=== PATIENT | male | born 1975 | race Caucasian/White ===

== ENCOUNTER 2019-11-14 16:50 | Emergency (ER) | payer OTHER, SELFPAY ==
[2019-11-14 16:56] VITALS: BMI 21.5
[2019-11-14 17:00] VITALS: BP 134/75; PULSE 52; RESP 18; TEMP 36.7; O2SAT 97
--- NOTE | 2019-11-14 17:28 | ED_ITS ---
Documented by User: Cameron Lombardi DO 11/15/19 06:04 HPI - Abdominal Pain General: Chief Complaint: Abdominal Pain Stated Complaint: abd pain Time Seen by Provider: 11/14/19 17:18 History of Present Illness: HPI narrative: 44-year-old male comes in with abdominal pain. He states he gets it an episode of this about every 3 to 4 weeks he gets severe nausea vomiting nominal pain and cramping. He has had this for the last several months. He states about 6 or 7 months ago had a Mariela fundoplication and it seemed to begin then he seen Dr. Huizar multiple times since then evidently this is a general surgeon from [facility]. He states he is tried several different tests and evaluations of not really found anything for it patient does state he usually resolves if he takes a hot shower. He has not had any hematuria he does get a lot of diaphoresis nausea and vomiting with this and it seems to be persistent. He does smoke marijuana daily states he has done this for years. MD elicited complaint: abdominal pain Pertinent past history: none Pain Consistency: constant Location: Diffuse Severity: mild Quality: cramping and stabbing Radiation: none Migration to: no migration Exacerbating factors: nothing Relieving factors: nothing Associated Symptoms: Reports anorexia, bloating and dyspepsia; Denies chills, fever(s), hematochezia, hematuria, hematemesis, fecal incontinence, melena, nausea and vomiting Treatments prior to arrival: other (PPI/H2 blockers) Review of Systems Const: Denies: fever(s), chills, body aches, change in appetite, fatigue or malaise ENMT: Denies: throat pain, ear or mastoid pain, nasal discharge or nasal congestion Card: Denies: chest pain, edema, dyspnea on exertion or orthopnea Resp: Denies: dyspnea, productive cough or non-productive cough GI: Reports: bloating; Denies: nausea, vomiting, hematemesis, fecal incontinence, hematochezia or melena : Denies: hematuria Skin/Breast: Denies: rash or pruritus Physical Exam Const: COMMON NORMALS: no acute distress GENERAL APPEARANCE: cooperative and comfortable ORIENTATION/CONSCIOUSNESS: Yes awake, Yes oriented to person, Yes oriented to place and Yes oriented to time HENMT: COMMON NORMALS: normocephalic, atraumatic, hearing grossly normal bilaterally, external ears normal, EAC's normal, TM's normal bilaterally, Normal nasal mucous membranes and turbinates present, moist oral mucous membranes and oropharynx normal HEAD & SCALP: normocephalic and atraumatic NOSE: Normal nasal mucous membranes and turbinates present EXTERNAL EAR: Yes external ears normal EXTERNAL AUDITORY CANAL: EAC's normal TYMPANIC MEMBRANE: TM's normal bilaterally Eye: COMMON NORMALS: Equal, round and reactive pupils present, EOMs intact bilaterally, conjunctivae normal and no scleral icterus CONJUNCTIVA: Yes conjunctivae normal PUPIL: Yes Equal, round and reactive pupils present Neck/C-Spine: COMMON NORMALS: full ROM, no lymphadenopathy, supple and no JVD Lymph: LYMPHATIC: no lymphadenopathy noted and no lymphedema noted Resp: COMMON NORMALS: normal respiratory effort, No retractions, No use of accessory muscles and clear to auscultation bilaterally AUSCULTATION: clear to auscultation bilaterally Cardio: COMMON NORMALS: no JVD, regular rate, regular rhythm and No murmurs present (Cardio) RATE: regular rate RHYTHM: regular rhythm GI: COMMON NORMALS: No hepatosplenomegaly present PALPATION: Yes Tenderness to palpation present (GI) (diffuse) and Yes No hepatosplenomegaly present Extremity: COMMON NORMALS: normal to inspection, capillary refill normal, no clubbing, cyanosis or edema, no calf tenderness and no pedal edema Neuro: SENSORIUM/ORIENTATION: Yes oriented to person, Yes oriented to place and Yes oriented to time Skin: COMMON NORMALS: no rashes or lesions noted GENERAL SKIN EXAM: no rashes or lesions noted Course Vital Signs: Vital signs: Vital Signs Temperature 98.1 F 11/14/19 17:00 Pulse Rate 67 11/14/19 20:43 Respiratory Rate 17 11/14/19 20:43 Blood Pressure 116/70 11/14/19 20:43 Pulse Oximetry 99 11/14/19 20:43 MDM - Abdominal Pain MDM Narrative: Medical decision making narrative: Initially after history and exam suggest to the patient this is most likely cyclical vomiting caused by chronic cannabinoid syndrome. Patient is more than marginally offended by this suggestion. He actually became somewhat upset. Discussed with him that is something we do see frequently we went ahead and gave him some Ativan and Haldol as well as some topical capsaicin cream. Find itching of the hot showers are actually something he finds relief from which is typical for chronic cannabinoid syndrome.. Lab Data: Labs: Lab Results 11/14/19 11/14/19 11/14/19 Range/Units 17:42 17:42 17:42 WBC 14.5 H (4.0-10.0) 10^3/ uL RBC 4.52 (4.1-5.3) 10^6/u L Hgb 14.0 (11.7-16.6) g/dL Hct 44.7 (42.0-52.0) % MCV 98.9 H (80-94) fL MCH 31.0 (28.0-34.0) pg MCHC 31.3 (30.0-36.0) g/dL RDW 13.1 (12.1-15.1) % Plt Count 245 (130-400) 10^3/c mm MPV 10.5 H (7.4-10.4) fL Neut % (Auto) 89.8 % Lymph % (Auto) 7.8 % [place] % (Auto) 1.9 % Eos % (Auto) 0.0 % Baso % (Auto) 0.1 % Neut # (Auto) 13.1 H (1.8-7.7) 10^3/u L Lymph # (Auto) 1.1 (0.8-4.8) 10^3/u L [place] # (Auto) 0.3 (0.2-0.9) 10^3/u L Eos # (Auto) 0.0 (0.0-0.8) 10^3/u L Baso # (Auto) 0.0 (0.0-0.1) 10^3/u L Nucleated RBC % (a uto) 0 % Nucleated RBCs # 0.0 /100WBC PT (10.5-13.3) SECO NDS INR (0.8-1.2) APTT (23.9-36.7) SECO NDS Sodium 141 (136-145) mmol/L Potassium 4.4 (3.5-5.1) mmol/L Chloride 106 (98-107) mmol/L Carbon Dioxide 21 L (22-29) mmol/L Anion Gap 18.4 (5-19) BUN 15 (6-20) mg/dL Creatinine 0.8 (0.7-1.2) mg/dL GFR Calculation 106.0 (90-130) mL/min Glucose 179 H (65-115) mg/dL Calculated Osmolal ity 293 (285-295) mOsm/k g Lactate 2.1 (0.5-2.2) mmol/L Calcium 9.9 (8.5-10.5) mg/dL Total Bilirubin 0.4 (0.15-1.2) mg/dL AST 15 (0-40) U/L ALT 13 (0-41) U/L Alkaline Phosphata se 83 (40-130) IU/L Total Protein 7.2 (6.6-8.7) g/dL Albumin 4.8 (3.5-5.2) g/dL Globulin 2.4 (1.3-4.6) g/dL Lipase 16 (13-60) U/L Urine Color (Yellow) Urine Appearance (CLEAR) Urine pH (5-7) Ur Specific Gravit y (1.005-1.030) Urine Protein (Negative) Urine Glucose (UA) (Normal) Urine Ketones (Negative) Urine Blood (Negative) Urine Nitrate (Negative) Urine Bilirubin (NEGATIVE) Urine Urobilinogen (Negative) mg/dL Ur Leukocyte Fozia ase (Negative) Urine RBC (0-2) /hpf Urine WBC (0-5) /hpf Ur Squamous Epith Cells (0-5) Ur Transition Epit h Cell /hpf Amorphous Sediment Urine Bacteria (NONE) 11/14/19 11/14/19 Range/Units 17:42 18:21 WBC (4.0-10.0) 10^3/ uL RBC (4.1-5.3) 10^6/u L Hgb (11.7-16.6) g/dL Hct (42.0-52.0) % MCV (80-94) fL MCH (28.0-34.0) pg MCHC (30.0-36.0) g/dL RDW (12.1-15.1) % Plt Count (130-400) 10^3/c mm MPV (7.4-10.4) fL Neut % (Auto) % Lymph % (Auto) % [place] % (Auto) % Eos % (Auto) % Baso % (Auto) % Neut # (Auto) (1.8-7.7) 10^3/u L Lymph # (Auto) (0.8-4.8) 10^3/u L [place] # (Auto) (0.2-0.9) 10^3/u L Eos # (Auto) (0.0-0.8) 10^3/u L Baso # (Auto) (0.0-0.1) 10^3/u L Nucleated RBC % (a uto) % Nucleated RBCs # /100WBC PT 13.60 H (10.5-13.3) SECO NDS INR 1.00 (0.8-1.2) APTT 28.5 (23.9-36.7) SECO NDS Sodium (136-145) mmol/L Potassium (3.5-5.1) mmol/L Chloride (98-107) mmol/L Carbon Dioxide (22-29) mmol/L Anion Gap (5-19) BUN (6-20) mg/dL Creatinine (0.7-1.2) mg/dL GFR Calculation (90-130) mL/min Glucose (65-115) mg/dL Calculated Osmolal ity (285-295) mOsm/k g Lactate (0.5-2.2) mmol/L Calcium (8.5-10.5) mg/dL Total Bilirubin (0.15-1.2) mg/dL AST (0-40) U/L ALT (0-41) U/L Alkaline Phosphata se (40-130) IU/L Total Protein (6.6-8.7) g/dL Albumin (3.5-5.2) g/dL Globulin (1.3-4.6) g/dL Lipase (13-60) U/L Urine Color Dark yellow (Yellow) Urine Appearance Clear (CLEAR) Urine pH 5 (5-7) Ur Specific Gravit y 1.020 (1.005-1.030) Urine Protein Neg (Negative) Urine Glucose (UA) Norm (Normal) Urine Ketones 2+ H (Negative) Urine Blood Neg (Negative) Urine Nitrate Negative (Negative) Urine Bilirubin Neg (NEGATIVE) Urine Urobilinogen Norm (Negative) mg/dL Ur Leukocyte Fozia ase Negative (Negative) Urine RBC 5-10 H (0-2) /hpf Urine WBC None (0-5) /hpf Ur Squamous Epith Cells 0-4 H (0-5) Ur Transition Epit h Cell 0-4 /hpf Amorphous Sediment Not Reportable Urine Bacteria Trace (NONE) Discharge Plan Discharge Patient Disposition: Home, Self-Care Clinical Impression: Abdominal pain Qualifiers: Abdominal location: generalized Qualified Code(s): R10.84 - Generalized abdominal pain Condition: Stable Prescriptions: New Zofran 4 mg tablet 4 mg PO Q6H PRN (Reason: nausea and vomiting) Qty: 20 RF: 0 No Action omeprazole 40 mg Capsule,Delayed Release(Dr/Ec) 40 mg PO BID RF: 0 Discharge Orders: Discharge Order (Routine); Ordered 11/14/19 Ordered By: Greer Rice Referrals: Isaac Waldrop FNP [Primary Care Provider] - Pranav Holguin MD [Physician] - 1-3 days Discharge Diet: Advance as tolerated and Clear Liquid Discharge Activity: Increase activity as tolerated Patient Instructions: Abdominal Pain (ED) Activity Restrictions/Additional Instructions: Please return to the ER immediately for any of the signs or symptoms listed on your discharge instruction sheets, worsening/changing of your symptoms, you are not getting better as quickly as expected, or for ANY other cause or concerns. Follow-up with Dr. Holguin or the surgeon that originally performed your surgery in [place] at [facility] for further evaluation and care. Avoid all illicit drugs or any other substances that may cause your self to be nauseated. Stand Alone Forms: Work/School Release Discharge Date/Time: 11/14/19 20:44 Sign Out Sign Out Data: Patient Sign Out occurred on 11/14/19 at 18:11. Patient's care was discussed, and care was transferred from to Greer Rice. Coding Level of Care Code ED Operating Room Registered Nurse for Chg Fwd Exam Comprehensive Documented by User: Greer iRce 11/15/19 01:05 HPI - Abdominal Pain General: Chief Complaint: Abdominal Pain Stated Complaint: abd pain Time Seen by Provider: 11/14/19 17:18 Course Vital Signs: Vital signs: Vital Signs Temperature 98.1 F 11/14/19 17:00 Pulse Rate 67 11/14/19 20:43 Respiratory Rate 17 11/14/19 20:43 Blood Pressure 116/70 11/14/19 20:43 Pulse Oximetry 99 11/14/19 20:43 MDM - Abdominal Pain MDM Narrative: Medical decision making narrative: 1899 -patient care turned over to me, Dr. Rice at change of shift from Dr. Lombardi. Please see his note for his history, physical exam and medical decision-making notes. Upon my reexamination the patient has no abdominal pain and he has not vomited. He feels much better. Patient CT scan shows cavernous hemangiomas which he states are old. I have requested an old CT from [facility] but if not received at this point. I did review the case in full with Dr. Holguin who states he is happy to see the patient in follow-up but he thought it would be preferable the patient followed up with his surgeon out of [facility]. Patient is aware of this and agrees to do so. He will return if he has any future problems but at this time he is feeling much better and he is ready to go home. On repeat exam he does not have a surgical abdomen. His heart is regular his lungs are clear his mentation is normal. I will discharge him home per his request. Lab Data: Attestation: I reviewed the patient's lab results. Labs: Lab Results 11/14/19 11/14/19 11/14/19 Range/Units 17:42 17:42 17:42 WBC 14.5 H (4.0-10.0) 10^3/ uL RBC 4.52 (4.1-5.3) 10^6/u L Hgb 14.0 (11.7-16.6) g/dL Hct 44.7 (42.0-52.0) % MCV 98.9 H (80-94) fL MCH 31.0 (28.0-34.0) pg MCHC 31.3 (30.0-36.0) g/dL RDW 13.1 (12.1-15.1) % Plt Count 245 (130-400) 10^3/c mm MPV 10.5 H (7.4-10.4) fL Neut % (Auto) 89.8 % Lymph % (Auto) 7.8 % [place] % (Auto) 1.9 % Eos % (Auto) 0.0 % Baso % (Auto) 0.1 % Neut # (Auto) 13.1 H (1.8-7.7) 10^3/u L Lymph # (Auto) 1.1 (0.8-4.8) 10^3/u L [place] # (Auto) 0.3 (0.2-0.9) 10^3/u L Eos # (Auto) 0.0 (0.0-0.8) 10^3/u L Baso # (Auto) 0.0 (0.0-0.1) 10^3/u L Nucleated RBC % (a uto) 0 % Nucleated RBCs # 0.0 /100WBC PT (10.5-13.3) SECO NDS INR (0.8-1.2) APTT (23.9-36.7) SECO NDS Sodium 141 (136-145) mmol/L Potassium 4.4 (3.5-5.1) mmol/L Chloride 106 (98-107) mmol/L Carbon Dioxide 21 L (22-29) mmol/L Anion Gap 18.4 (5-19) BUN 15 (6-20) mg/dL Creatinine 0.8 (0.7-1.2) mg/dL GFR Calculation 106.0 (90-130) mL/min Glucose 179 H (65-115) mg/dL Calculated Osmolal ity 293 (285-295) mOsm/k g Lactate 2.1 (0.5-2.2) mmol/L Calcium 9.9 (8.5-10.5) mg/dL Total Bilirubin 0.4 (0.15-1.2) mg/dL AST 15 (0-40) U/L ALT 13 (0-41) U/L Alkaline Phosphata se 83 (40-130) IU/L Total Protein 7.2 (6.6-8.7) g/dL Albumin 4.8 (3.5-5.2) g/dL Globulin 2.4 (1.3-4.6) g/dL Lipase 16 (13-60) U/L Urine Color (Yellow) Urine Appearance (CLEAR) Urine pH (5-7) Ur Specific Gravit y (1.005-1.030) Urine Protein (Negative) Urine Glucose (UA) (Normal) Urine Ketones (Negative) Urine Blood (Negative) Urine Nitrate (Negative) Urine Bilirubin (NEGATIVE) Urine Urobilinogen (Negative) mg/dL Ur Leukocyte Fozia ase (Negative) Urine RBC (0-2) /hpf Urine WBC (0-5) /hpf Ur Squamous Epith Cells (0-5) Ur Transition Epit h Cell /hpf Amorphous Sediment Urine Bacteria (NONE) 11/14/19 11/14/19 Range/Units 17:42 18:21 WBC (4.0-10.0) 10^3/ uL RBC (4.1-5.3) 10^6/u L Hgb (11.7-16.6) g/dL Hct (42.0-52.0) % MCV (80-94) fL MCH (28.0-34.0) pg MCHC (30.0-36.0) g/dL RDW (12.1-15.1) % Plt Count (130-400) 10^3/c mm MPV (7.4-10.4) fL Neut % (Auto) % Lymph % (Auto) % [place] % (Auto) % Eos % (Auto) % Baso % (Auto) % Neut # (Auto) (1.8-7.7) 10^3/u L Lymph # (Auto) (0.8-4.8) 10^3/u L [place] # (Auto) (0.2-0.9) 10^3/u L Eos # (Auto) (0.0-0.8) 10^3/u L Baso # (Auto) (0.0-0.1) 10^3/u L Nucleated RBC % (a uto) % Nucleated RBCs # /100WBC PT 13.60 H (10.5-13.3) SECO NDS INR 1.00 (0.8-1.2) APTT 28.5 (23.9-36.7) SECO NDS Sodium (136-145) mmol/L Potassium (3.5-5.1) mmol/L Chloride (98-107) mmol/L Carbon Dioxide (22-29) mmol/L Anion Gap (5-19) BUN (6-20) mg/dL Creatinine (0.7-1.2) mg/dL GFR Calculation (90-130) mL/min Glucose (65-115) mg/dL Calculated Osmolal ity (285-295) mOsm/k g Lactate (0.5-2.2) mmol/L Calcium (8.5-10.5) mg/dL Total Bilirubin (0.15-1.2) mg/dL AST (0-40) U/L ALT (0-41) U/L Alkaline Phosphata se (40-130) IU/L Total Protein (6.6-8.7) g/dL Albumin (3.5-5.2) g/dL Globulin (1.3-4.6) g/dL Lipase (13-60) U/L Urine Color Dark yellow (Yellow) Urine Appearance Clear (CLEAR) Urine pH 5 (5-7) Ur Specific Gravit y 1.020 (1.005-1.030) Urine Protein Neg (Negative) Urine Glucose (UA) Norm (Normal) Urine Ketones 2+ H (Negative) Urine Blood Neg (Negative) Urine Nitrate Negative (Negative) Urine Bilirubin Neg (NEGATIVE) Urine Urobilinogen Norm (Negative) mg/dL Ur Leukocyte Fozia ase Negative (Negative) Urine RBC 5-10 H (0-2) /hpf Urine WBC None (0-5) /hpf Ur Squamous Epith Cells 0-4 H (0-5) Ur Transition Epit h Cell 0-4 /hpf Amorphous Sediment Not Reportable Urine Bacteria Trace (NONE) Imaging Data ^: CT Abd/Pel: Radiologist's impression: [place] [address] CT Scan Report Signed Patient: Rory Laurent Unit #: [id number] : 1975 Age/Sex: 44 / M ADM Date: 11/14/19 Loc: ER Room/Bed: Attending Dr: Ordering Provider/Ordering MD: Cameron Lombardi DO Date of Service: 11/14/19 Procedure(s): CT abdomen pelvis w con* [id number] Accession Number(s): [id number] Report Number: [id number] PROCEDURE INFORMATION: Exam: CT Abdomen And Pelvis With Contrast Exam date and time: 11/14/2019 5:40 PM Age: 44 years old Clinical indication: Abdominal pain; Generalized; Prior surgery; Surgery date: 6+ months; Surgery type: Appy, hernia x 2; Additional info: Abd pain TECHNIQUE: Imaging protocol: Computed tomography of the abdomen and pelvis with intravenous contrast. Radiation optimization: All CT scans at this facility use at least one of these dose optimization techniques: automated exposure control; mA and/or kV adjustment per patient size (includes targeted exams where dose is matched to clinical indication); or iterative reconstruction. Contrast material: OMNI 300; Contrast volume: 95 ml; Contrast route: INTRAVENOUS (IV); COMPARISON: No relevant prior studies available. RADIATION DOSE METRICS: Total DLP (mGy-cm): 533.06 FINDINGS: Liver: Examination reveals a large right hepatic lobe cavernous hemangioma dimensions approximately 9.2 cm x 7.5 cm x 7.5 cm. The cavernous hemangiomas located primarily in the posterior segment region of the liver. Two additional cavernous hemangiomas are located at the dome of the right hepatic lobe the dominant measuring approximately 37 mm x 19 mm x 36 mm. The 2nd measures approximately 20 mm in diameter. Remainder of the a patent parenchyma peers unremarkable. Gallbladder and bile ducts: Status post cholecystectomy. No visible intra or extrahepatic biliary ectasia. Pancreas: Normal. No ductal dilation. Spleen: Normal. No splenomegaly. Adrenals: Normal. No mass. Kidneys and ureters: Normal. No hydronephrosis. Stomach and bowel: Mild diverticulosis coli without evidence for diverticulitis. Nonobstructive bowel pattern. No visible adynamic or reactive ileus. Appendix: Status post appendectomy. Intraperitoneal space: Unremarkable. No free air. No significant fluid collection. Vasculature: Unremarkable. No abdominal aortic aneurysm. Lymph nodes: Unremarkable. No enlarged lymph nodes. Bladder: Unremarkable as visualized. Reproductive: Mild prostate hypertrophy. Bones/joints: Limbus vertebra L3. No visible acute or active osseous pathology. Soft tissues: Unremarkable. CT/CT abdomen pelvis w con* [id number] IMPRESSION: 1. Examination reveals a large right hepatic lobe cavernous hemangioma dimensions approximately 9.2 cm x 7.5 cm x 7.5 cm. 2. Two (2) additional smaller cavernous hemangiomas right hepatic lobe dome as detailed in text above. 3. No visible evidence of acute abdominal or pelvic pathologic process. Radiation Dose CTDIVOL = (mGy): DLP = 533.06 (mGy-cm) Dictated By: Kwan Mitchell Signed By: Kwan Mitchell Signed Date/Time: 11/14/191813 DD/ 12 Discharge Plan Discharge Patient Disposition: Home, Self-Care Clinical Impression: Abdominal pain Qualifiers: Abdominal location: generalized Qualified Code(s): R10.84 - Generalized abdominal pain Condition: Stable Prescriptions: New Zofran 4 mg tablet 4 mg PO Q6H PRN (Reason: nausea and vomiting) Qty: 20 RF: 0 No Action omeprazole 40 mg Capsule,Delayed Release(Dr/Ec) 40 mg PO BID RF: 0 Discharge Orders: Discharge Order (Routine); Ordered 11/14/19 Ordered By: Greer Rice Referrals: Isaac Waldrop FNP [Primary Care Provider] - Pranav Holguin MD [Physician] - 1-3 days Discharge Diet: Advance as tolerated and Clear Liquid Discharge Activity: Increase activity as tolerated Patient Instructions: Abdominal Pain (ED) Activity Restrictions/Additional Instructions: Please return to the ER immediately for any of the signs or symptoms listed on your discharge instruction sheets, worsening/changing of your symptoms, you are not getting better as quickly as expected, or for ANY other cause or concerns. Follow-up with Dr. Holguin or the surgeon that originally performed your surgery in [place] at [facility] for further evaluation and care. Avoid all illicit drugs or any other substances that may cause your self to be nauseated. Stand Alone Forms: Work/School Release Discharge Date/Time: 11/14/19 20:44 Sign Out Sign Out Data: Patient Sign Out occurred on 11/14/19 at 18:11. Patient's care was discussed, and care was transferred from to Greer Rice. Coding Level of Care Code ED Operating Room Registered Nurse for Arlyng Fwd Exam Comprehensive
--- NOTE | 2019-11-14 17:45 | PC.NURSE ---
pc to pharmacy spoke with nicole dolan who stated that haldol best adm via im route informed dr. odalys lenz and readback to change route to im.
[2019-11-14] MEDS: iohexol 300 mg/mL 100 mL Btl IV (17:48)
--- NOTE | 2019-11-14 17:51 | PC.NURSE ---
iv started via ct.
[2019-11-14 17:53] LABS: Basophils % 0.1 %; Hematocrit 44.7 % (42.0-52.0); Lymphocytes # 1.1 10^3/uL (0.8-4.8); Lymphocytes % 7.8 %; Mean Corpuscular HGB Conc 31.3 g/dL (30.0-36.0); Mean Corpuscular Volume 98.9 fL (80-94); Mean Platelet Volume 10.5 fL (7.4-10.4); Monocytes # 0.3 10^3/uL (0.2-0.9); Monocytes % 1.9 %; Neutrophils # 13.1 10^3/uL (1.8-7.7); Neutrophils % 89.8 %; Nucleated Red Blood Cells % 0 %; Platelet Count 245 10^3/cmm (130-400); Red Blood Count 4.52 10^6/uL (4.1-5.3); Red Cell Distribution Width 13.1 % (12.1-15.1); White Blood Count 14.5 10^3/uL (4.0-10.0)
[2019-11-14] MEDS: ondansetron 2 mg/ML SDV 2 mL 4 MG IVP (17:53)
[2019-11-14] MEDS: sodium chloride 0.9% 1,000 ML 999 ML IV (17:54)
[2019-11-14] MEDS: LORazepam 2 mg/mL INJ 1 mL IVP (17:55)
[2019-11-14] MEDS: haloperidol inj 5 mg/mL INJ 1 mL IM (18:01)
[2019-11-14 18:02] VITALS: BP 127/83; PULSE 55; RESP 14; O2SAT 95
[2019-11-14] MEDS: capsaicin 0.025% cream 60 gm 1 APPLIC TOPICAL (18:22)
[2019-11-14 18:27] LABS: Partial Thromboplastin Time 28.5 SECONDS (23.9-36.7)
[2019-11-14 18:36] LABS: Alanine Aminotransferase 13 U/L (0-41); Albumin Level 4.8 g/dL (3.5-5.2); Alkaline Phosphatase 83 IU/L (40-130); Anion Gap 18.4 (5-19); Aspartate Amino Transferase 15 U/L (0-40); Blood Urea Nitrogen 15 mg/dL (6-20); Calcium 9.9 mg/dL (8.5-10.5); Carbon Dioxide 21 mmol/L (22-29); Chloride 106 mmol/L (98-107); Creatinine Clr Calc Pharmacy 120.8252; Globulin 2.4 g/dL (1.3-4.6); Glucose 179 mg/dL (65-115); Lipase 16 U/L (13-60); Osmolality Calculated 293 mOsm/kg (285-295); Potassium 4.4 mmol/L (3.5-5.1); Sodium 141 mmol/L (136-145); Total Bilirubin 0.4 mg/dL (0.15-1.2); Total Protein 7.2 g/dL (6.6-8.7)
[2019-11-14 18:37] LABS: Lactate (Lactic Acid level) 2.1 mmol/L (0.5-2.2)
[2019-11-14 19:02] VITALS: BP 140/79; PULSE 69; RESP 16; O2SAT 93
--- NOTE | 2019-11-14 19:07 | PC.NURSE ---
Report received from JARVIS Crespo and care transferred to JARVIS Tompkins
--- NOTE | 2019-11-14 19:09 | PC.NURSE ---
report given to abhishek arias rn assumed care.
[2019-11-14 19:20] LABS: Add Urine Microscopic? YES; Bilirubin Urine Neg (NEGATIVE); Blood Urine Neg (Negative); Glucose Urine UA Norm (Normal); Ketones Urine 2+ (Negative); Leukocyte Esterase Urine Negative (Negative); Nitrate Urine Negative (Negative); Protein Urine Neg (Negative); Urine Appearance Clear (CLEAR); Urine Color Dark Yellow (Yellow); Urobilinogen Urine Norm (Negative); pH Urine 5 (5-7)
[2019-11-14 19:22] VITALS: BP 109/65; PULSE 81; RESP 16; O2SAT 94
[2019-11-14 19:23] LABS: Squamous Epithelial Cell Urine 0-4 (0-5)
[2019-11-14 19:28] LABS: Add Urine Culture? No; Bacteria Urine TRACE; Transitional Epi Cells Urine 0-4 /hpf
[2019-11-14 20:43] VITALS: BP 116/70; PULSE 67; RESP 17; O2SAT 99
== END 2019-11-14 20:44 | disposition home or self-care (01) ==
PROVIDERS: Emergency Medicine; Family Medicine; Emergency Provider Emergency Medicine; PCP Nurse Practitioner Family
DX: R10.84 Generalized abdominal pain (principal)
CPT/HCPCS: 12345; 74177; 80053; 81001; 81003; 83605; 83690; 85025; 85610; 85730; 96360; 96361; 96372; 96374; 96375; 99283; J1630; J2060; J2405; J7030; Q9967

== ENCOUNTER 2022-08-08 09:44 | Emergency (ER) | payer OTHER, SELFPAY ==
[2022-08-08 09:58] VITALS: BP 148/99; PULSE 60; RESP 16; TEMP 36.7; O2SAT 97; BMI 16.5
--- NOTE | 2022-08-08 10:14 | CTR_ITS ---
PROCEDURE INFORMATION: Exam: CT Abdomen And Pelvis With Contrast Exam date and time: 08/08/2022 10:47 AM Age: 47 years old Clinical indication: Abdominal pain; Generalized; Prior surgery; Surgery type: HX of robbie fundoplication gb hernia; Additional info: Ab pain, n/v, HX of robbie fundoplication TECHNIQUE: Imaging protocol: Computed tomography of the abdomen and pelvis with contrast. Radiation optimization: All CT scans at this facility use at least one of these dose optimization techniques: automated exposure control; mA and/or kV adjustment per patient size (includes targeted exams where dose is matched to clinical indication); or iterative reconstruction. Contrast material: OMNI 350; Contrast volume: 75 ml; Contrast route: INTRAVENOUS (IV); REPORTING DATA: Count of CT and Cardiac NM exams in prior 12 months: This patient has received 0 known CTs and 0 known cardiac nuclear medicine studies in the 12 months prior to the current study. COMPARISON: CT abdomen pelvis w con* [id number] 11/14/2019 5:32 PM RADIATION DOSE METRICS: Total DLP (mGy-cm): 320.03 FINDINGS: Lungs: Respiratory motion limiting fine pulmonary detail. Liver: Large hemangioma in the posterior right lobe of the liver measuring up to 8 cm, again noted similar to prior exam. Migrated surgical clip along the inferolateral margin of the right lobe of the liver, similar to prior exam. Additional smaller hemangiomas again noted near the hepatic dome in the right lobe of the liver. Gallbladder and bile ducts: The gallbladder is surgically absent. Pancreas: The pancreas appears normal. Spleen: The spleen appears normal. Adrenal glands: The adrenals appear normal. Kidneys and ureters: The kidneys enhance symmetrically and empty into non-dilated ureters. Stomach and bowel: Postsurgical changes in the stomach noted. Appendix: The appendix appears normal. Intraperitoneal space: No ascites or significant fluid collection. Vasculature: The aorta is nonaneurysmal. The IVC appears normal. Lymph nodes: There are no enlarged lymph nodes. Urinary bladder: The urinary bladder is not well distended, therefore not well evaluated. Reproductive: Unremarkable as visualized. Bones/joints: Limbus deformity in the anterior superior endplate of L3. Soft tissues: Unremarkable. CT/CT abdomen pelvis w con* [id number] IMPRESSION: No acute abdominopelvic abnormality identified.
--- NOTE | 2022-08-08 10:15 | ED_ITS ---
Documented by User: NOEL Conway 08/08/22 11:44 HPI - Abdominal Pain General: Chief Complaint: Abdominal Pain Stated Complaint: abd pain ,N/V Time Seen by Provider: 08/08/22 09:45 Source: patient Mode of arrival: wheelchair Limitations: no limitations History of Present Illness: Patient is a 47-year-old male who presents to the ED today with a complaint of abdominal pain, nausea, vomiting/dry heaving over the past 4 days. Patient states he has a history of a Shay fundoplication approximately 4 years ago by a surgeon at [facility]. He states it failed and had to be revised 2 years ago. Patient states every 3 to 4 weeks he will have episodes similar to this. He states he can normally control it home with warm baths/showers. Patient was seen here at our facility in 2019 with identical presentation. When asked he does tell me he has been smoking marijuana daily over the past 30 years. He has been told in the past this could be secondary to hyperemesis cannabis syndrome but is adamant this is not the etiology for his symptoms stating he quit for 2 months and symptoms did not improve. 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 MD elicited complaint: abdominal pain and other (N/V) Onset (ago): day(s) Pain Consistency: constant Location: Diffuse and LUQ Severity: severe Quality: cramping and sharp Radiation: none Migration to: no migration Exacerbating factors: eating Relieving factors: other (hot showers/baths) Associated Symptoms: Reports nausea and vomiting; Denies chills, diarrhea, dysuria, fever(s), hematochezia, hematuria, hematemesis and melena Review of Systems Const: Denies: fever(s), chills, body aches, fatigue or malaise Card: Denies: chest pain Resp: Denies: dyspnea GI: Reports: abdominal pain, nausea and vomiting; Denies: hematemesis, diarrhea, hematochezia or melena : Denies: flank pain, dysuria or hematuria Musc: Denies: neck pain, back pain, extremity pain or joint pain Skin/Breast: Denies: rash Neuro: Denies: headache(s) or dizziness Physical Exam Const: COMMON NORMALS: average body habitus, patient oriented x3, no limitations, alert and well nourished GENERAL APPEARANCE: cooperative and in distress (hunched over holding his abdomen) ORIENTATION/CONSCIOUSNESS: Yes awake, Yes oriented to person, Yes oriented to place and Yes oriented to time HENMT: COMMON NORMALS: normocephalic and atraumatic HEAD & SCALP: normal to inspection, normocephalic and atraumatic Eye: COMMON NORMALS: no scleral icterus Resp: COMMON NORMALS: normal respiratory effort and clear to auscultation bilaterally AUSCULTATION: clear to auscultation bilaterally Cardio: COMMON NORMALS: regular rate and regular rhythm RATE: regular rate RHYTHM: regular rhythm GI: COMMON NORMALS: Normal to inspection, nondistended, normoactive bowel sounds present, Soft to palpation, No hepatosplenomegaly present and no masses INSPECTION: Yes normal to inspection AUSCULTATION: Yes normoactive bowel sounds PALPATION: Yes Soft to palpation, Yes Tenderness to palpation present (GI) (throughout abdomen but moreso to upper abdomen ), Yes Guarding due to palpation present (GI), No Rigid due to palpation and Yes No hepatosplenomegaly present Extremity: COMMON NORMALS: normal to inspection GENERAL: Yes normal exam except as noted Neuro: MARAL COMA SCALE: document GCS findings Maral coma scale eye opening: Spontaneous [place] coma scale verbal response: Orientated [place] coma scale motor response: Obey commands [place] coma scale total score: 15 COMMON NORMALS: patient oriented x3 SENSORIUM/ORIENTATION: Yes alert, Yes oriented to person, Yes oriented to place and Yes oriented to time Skin: COMMON NORMALS: no rashes or lesions noted GENERAL SKIN EXAM: no rashes or lesions noted Course Vital Signs: Vital signs: Vital Signs Temperature 98.0 F 08/08/22 09:58 Pulse Rate 60 08/08/22 09:58 Respiratory Rate 16 08/08/22 09:58 Blood Pressure 148/99 08/08/22 09:58 Pulse Oximetry 97 08/08/22 09:58 Oxygen Delivery Me thod 08/08/22 09:58 MDM - Abdominal Pain Medical Decision Making After careful history, I highly suspect patient's symptoms are secondary to hyperemesis cannabinoid syndrome. Patient's symptoms are vastly improved after IV fluids, Ativan, Haldol. Vital signs are stable. Lab work shows some acute kidney injury with BUN/Cr at 53/1.5. He was given 2 L of fluids and will have a CMP checked through primary care this week. CT scan is unremarkable. He does have chronic liver hemangiomas that were present on last CT scan in 2019. Sent patient home with Ativan and Zdayneis Zyprexa to help alleviate his abdominal faye n/nausea/dry heaving. Had a lengthy discussion with patient in regards to marijuana cessation but ultimately this is a personal choice that patient will need to decide. Lab Data 08/08/22 10:24 08/08/22 10:24 Labs/Radiology: Radiology Impressions Abdomen/Pelvis CT 08/08/22 10:14 IMPRESSION: No acute abdominopelvic abnormality identified. Laboratory Results WBC 12.6 10^3/uL (4.0-10.0) H 08/08/22 10:24 RBC 5.46 10^6/uL (4.1-5.3) H 08/08/22 10:24 Hgb 16.8 g/dL (11.7-16.6) H 08/08/22 10:24 Hct 47.7 % (42.0-52.0) 08/08/22 10:24 MCV 87.4 fl (80-94) 08/08/22 10:24 MCH 30.8 pg (28.0-34.0) 08/08/22 10:24 MCHC 35.2 g/dL (30.0-36.0) 08/08/22 10:24 RDW 12.7 % (12.1-15.1) 08/08/22 10:24 Plt Count 304 10^3/cmm (130-400) 08/08/22 10:24 MPV 10.1 fL (7.4-10.4) 08/08/22 10:24 Neut % (Auto) 70.7 % 08/08/22 10:24 Lymph % (Auto) 20.3 % 08/08/22 10:24 [place] % (Auto) 8.2 % 08/08/22 10:24 Eos % (Auto) 0.0 % 08/08/22 10:24 Baso % (Auto) 0.2 % 08/08/22 10:24 Neut # (Auto) 8.95 10^3/uL (1.8-7.7) H 08/08/22 10:24 Lymph # (Auto) 2.6 10^3/uL (0.8-4.8) 08/08/22 10:24 [place] # (Auto) 1.0 10^3/uL (0.2-0.9) H 08/08/22 10:24 Eos # (Auto) 0.0 10^3/uL (0.0-0.8) 08/08/22 10:24 Baso # (Auto) 0.0 10^3/uL (0.0-0.1) 08/08/22 10:24 Nucleated RBC % (auto) 0 % 08/08/22 10:24 Nucleated RBCs # 0.0 /100WBC 08/08/22 10:24 Sodium 127 mmol/L (136-145) L 08/08/22 10:24 Potassium 3.7 mmol/L (3.5-5.1) 08/08/22 10:24 Chloride 90 mmol/L (98-107) L 08/08/22 10:24 Carbon Dioxide 18 mmol/L (22-29) L 08/08/22 10:24 Anion Gap 22.7 (5-19) H 08/08/22 10:24 BUN 53 mg/dL (6-20) H 08/08/22 10:24 Creatinine 1.5 mg/dL (0.7-1.2) H 08/08/22 10:24 GFR Calculation 50.6 mL/min (90-130) L 08/08/22 10:24 Glucose 129 mg/dL (65-115) H 08/08/22 10:24 Calculated Osmolality 280 mOsm/kg (285-295) L 08/08/22 10:24 Calcium 9.6 mg/dL (8.5-10.5) 08/08/22 10:24 Total Bilirubin 1.2 mg/dL (0.15-1.2) 08/08/22 10:24 AST 14 U/L (0-40) 08/08/22 10:24 ALT 13 U/L (0-41) 08/08/22 10:24 Alkaline Phosphatase 88 U/L (40-130) 08/08/22 10:24 Total Protein 8.4 g/dL (6.6-8.7) 08/08/22 10:24 Albumin 5.0 g/dL (3.5-5.2) 08/08/22 10:24 Globulin 3.4 g/dL (1.3-4.6) 08/08/22 10:24 Lipase 28 U/L (13-60) 08/08/22 10:24 Urine Color Yellow (Yellow) 08/08/22 10:57 Urine Appearance Clear (CLEAR) 08/08/22 10:57 Urine pH 5 (5-7) 08/08/22 10:57 Ur Specific [place] 1.020 (1.005-1.030) 08/08/22 10:57 Urine Protein 1+ (Negative) H 08/08/22 10:57 Urine Glucose (UA) Norm (Normal) 08/08/22 10:57 Urine Ketones 1+ (Negative) H 08/08/22 10:57 Urine Blood 2+ (Negative) H 08/08/22 10:57 Urine Nitrate Negative (Negative) 08/08/22 10:57 Urine Bilirubin Neg (Negative) 08/08/22 10:57 Urine Urobilinogen Norm mg/dL (Negative) 08/08/22 10:57 Ur Leukocyte Esterase Negative (Negative) 08/08/22 10:57 Urine RBC 0-4 /hpf (0-2) H 08/08/22 10:57 Urine WBC Rare /hpf (0-5) 08/08/22 10:57 Ur Squamous Epith Cells None /hpf (0-5) 08/08/22 10:57 Amorphous Sediment Not Reportable 08/08/22 10:57 Urine Bacteria Trace /hpf (NONE) 08/08/22 10:57 Hyaline Casts 10-15 /lpf H 08/08/22 10:57 Urine Mucus 1+ /hpf 08/08/22 10:57 Discharge Plan Discharge Patient Disposition: Home Clinical Impression: Cannabinoid hyperemesis syndrome, Acute kidney injury Condition: Stable Prescriptions: New Ativan 1 mg tablet 1 mg buccal Q8H PRN (Reason: nausea and vomiting) Qty: 10 0RF olanzapine 10 mg tablet,disintegrating 10 mg PO DAILY 5 Days Qty: 5 0RF No Action omeprazole 40 mg Capsule,Delayed Release(Dr/Ec) 40 mg PO BID Zofran 4 mg tablet 4 mg PO Q6H PRN (Reason: nausea and vomiting) Qty: 20 0RF Discharge Orders: Discharge ED (Routine); Ordered 08/08/22 Ordered By: Kristyn Marti Referrals: Kirk Domingo MD [Primary Care Provider] - Patient Instructions: Cannabis Use Disorder (ED) Activity Restrictions/Additional Instructions: As we discussed I would like your primary care provider to repeat a CMP/chemistry panel this week for re-evaluation of your kidney injury secondary to dehydration. I have given you medications to help with your abdominal pain/nausea/vomiting over the next few days. If these do not alleviate your symptoms or if symptoms worsen you may always return to the emergency department for re-evaluation. As we discussed I highly suggest you stop using marijuana altogether although this will need to be a personal choice that you make. Your CT scan today was unremarkable apart from chronic findings of a hemangioma in your liver. This can be followed by your primary care provider or your GI s pecialist in [place]. Coding Level of Care Code ED Interactive Web Developer for [employer] Documented by User: Cameron Lombardi DO 08/08/22 12:29 HPI - Abdominal Pain General: Chief Complaint: Abdominal Pain Stated Complaint: abd pain ,N/V Time Seen by Provider: 08/08/22 09:45 Physical Exam Neuro: MARAL COMA SCALE: document GCS findings [place] coma scale total score: 15 Course Vital Signs: Vital signs: Vital Signs Temperature 98.0 F 08/08/22 09:58 Pulse Rate 60 08/08/22 09:58 Respiratory Rate 16 08/08/22 09:58 Blood Pressure 148/99 08/08/22 09:58 Pulse Oximetry 97 08/08/22 09:58 Oxygen Delivery Me thod 08/08/22 09:58 MDM - Abdominal Pain Medical Decision Making After careful history, I highly suspect patient's symptoms are secondary to hyperemesis cannabinoid syndrome. Patient's symptoms are vastly improved after IV fluids, Ativan, Haldol. Vital signs are stable. Lab work shows some acute kidney injury with BUN/Cr at 53/1.5. He was given 2 L of fluids and will have a CMP checked through primary care this week. CT scan is unremarkable. He does have chronic liver hemangiomas that were present on last CT scan in 2019. Sent patient home with Ativan and Andry Randrexa to help alleviate his abdominal pain/nausea/dry heaving. Had a lengthy discussion with patient in regards to marijuana cessation but ultimately this is a personal choice that patient will need to decide. Chart reviewed and patient discussed with midlevel. Agree with assessment and plan. Lab Data 08/08/22 10:24 08/08/22 10:24 Labs/Radiology: Radiology Impressions Abdomen/Pelvis CT 08/08/22 10:14 IMPRESSION: No acute abdominopelvic abnormality identified. Laboratory Results WBC 12.6 10^3/uL (4.0-10.0) H 08/08/22 10:24 RBC 5.46 10^6/uL (4.1-5.3) H 08/08/22 10:24 Hgb 16.8 g/dL (11.7-16.6) H 08/08/22 10:24 Hct 47.7 % (42.0-52.0) 08/08/22 10:24 MCV 87.4 fl (80-94) 08/08/22 10:24 MCH 30.8 pg (28.0-34.0) 08/08/22 10:24 MCHC 35.2 g/dL (30.0-36.0) 08/08/22 10:24 RDW 12.7 % (12.1-15.1) 08/08/22 10:24 Plt Count 304 10^3/cmm (130-400) 08/08/22 10:24 MPV 10.1 fL (7.4-10.4) 08/08/22 10:24 Neut % (Auto) 70.7 % 08/08/22 10:24 Lymph % (Auto) 20.3 % 08/08/22 10:24 [place] % (Auto) 8.2 % 08/08/22 10:24 Eos % (Auto) 0.0 % 08/08/22 10:24 Baso % (Auto) 0.2 % 08/08/22 10:24 Neut # (Auto) 8.95 10^3/uL (1.8-7.7) H 08/08/22 10:24 Lymph # (Auto) 2.6 10^3/uL (0.8-4.8) 08/08/22 10:24 [place] # (Auto) 1.0 10^3/uL (0.2-0.9) H 08/08/22 10:24 Eos # (Auto) 0.0 10^3/uL (0.0-0.8) 08/08/22 10:24 Baso # (Auto) 0.0 10^3/uL (0.0-0.1) 08/08/22 10:24 Nucleated RBC % (auto) 0 % 08/08/22 10:24 Nucleated RBCs # 0.0 /100WBC 08/08/22 10:24 Sodium 127 mmol/L (136-145) L 08/08/22 10:24 Potassium 3.7 mmol/L (3.5-5.1) 08/08/22 10:24 Chloride 90 mmol/L (98-107) L 08/08/22 10:24 Carbon Dioxide 18 mmol/L (22-29) L 08/08/22 10:24 Anion Gap 22.7 (5-19) H 08/08/22 10:24 BUN 53 mg/dL (6-20) H 08/08/22 10:24 Creatinine 1.5 mg/dL (0.7-1.2) H 08/08/22 10:24 GFR Calculation 50.6 mL/min (90-130) L 08/08/22 10:24 Glucose 129 mg/dL (65-115) H 08/08/22 10:24 Calculated Osmolality 280 mOsm/kg (285-295) L 08/08/22 10:24 Calcium 9.6 mg/dL (8.5-10.5) 08/08/22 10:24 Total Bilirubin 1.2 mg/dL (0.15-1.2) 08/08/22 10:24 AST 14 U/L (0-40) 08/08/22 10:24 ALT 13 U/L (0-41) 08/08/22 10:24 Alkaline Phosphatase 88 U/L (40-130) 08/08/22 10:24 Total Protein 8.4 g/dL (6.6-8.7) 08/08/22 10:24 Albumin 5.0 g/dL (3.5-5.2) 08/08/22 10:24 Globulin 3.4 g/dL (1.3-4.6) 08/08/22 10:24 Lipase 28 U/L (13-60) 08/08/22 10:24 Urine Color Yellow (Yellow) 08/08/22 10:57 Urine Appearance Clear (CLEAR) 08/08/22 10:57 Urine pH 5 (5-7) 08/08/22 10:57 Ur Specific [place] 1.020 (1.005-1.030) 08/08/22 10:57 Urine Protein 1+ (Negative) H 08/08/22 10:57 Urine Glucose (UA) Norm (Normal) 08/08/22 10:57 Urine Ketones 1+ (Negative) H 08/08/22 10:57 Urine Blood 2+ (Negative) H 08/08/22 10:57 Urine Nitrate Negative (Negative) 08/08/22 10:57 Urine Bilirubin Neg (Negative) 08/08/22 10:57 Urine Urobilinogen Norm mg/dL (Negative) 08/08/22 10:57 Ur Leukocyte Esterase Negative (Negative) 08/08/22 10:57 Urine RBC 0-4 /hpf (0-2) H 08/08/22 10:57 Urine WBC Rare /hpf (0-5) 08/08/22 10:57 Ur Squamous Epith Cells None /hpf (0-5) 08/08/22 10:57 Amorphous Sediment Not Reportable 08/08/22 10:57 Urine Bacteria Trace /hpf (NONE) 08/08/22 10:57 Hyaline Casts 10-15 /lpf H 08/08/22 10:57 Urine Mucus 1+ /hpf 08/08/22 10:57 Discharge Plan Discharge Patient Disposition: Home Clinical Impression: Cannabinoid hyperemesis syndrome, Acute kidney injury Condition: Stable Prescriptions: New Ativan 1 mg tablet 1 mg buccal Q8H PRN (Reason: nausea and vomiting) Qty: 10 0RF olanzapine 10 mg tablet,disintegrating 10 mg PO DAILY 5 Days Qty: 5 0RF No Action omeprazole 40 mg Capsule,Delayed Release(Dr/Ec) 40 mg PO BID Zofran 4 mg tablet 4 mg PO Q6H PRN (Reason: nausea and vomiting) Qty: 20 0RF Discharge Orders: Discharge ED (Routine); Ordered 08/08/22 Ordered By: Kristyn Marti Referrals: Kirk Domingo MD [Primary Care Provider] - Patient Instructions: Cannabis Use Disorder (ED) Activity Restrictions/Additional Instructions: As we discussed I would like your primary care provider to repeat a CMP/c hemistry panel this week for re-evaluation of your kidney injury secondary to dehydration. I have given you medications to help with your abdominal pain/nausea/vomiting over the next few days. If these do not alleviate your symptoms or if symptoms worsen you may always return to the emergency department for re-evaluation. As we discussed I highly suggest you stop using marijuana altogether although this will need to be a personal choice that you make. Your CT scan today was unremarkable apart from chronic findings of a hemangioma in your liver. This can be followed by your primary care provider or your GI specialist in [place]. Coding Level of Care Code ED Interactive Web Developer for Monique Whitfield
[2022-08-08] MEDS: haloperidol inj 5 mg/mL INJ 1 mL IVP (10:31)
[2022-08-08] MEDS: sodium chloride 0.9% 1,000 ML 999 ML IV ×2 (10:31→12:39)
[2022-08-08] MEDS: LORazepam 2 mg/mL INJ 1 mL 1 MG IVP (10:31)
[2022-08-08 10:45] LABS: Basophils % 0.2 %; Hematocrit 47.7 % (42.0-52.0); Hemoglobin 16.8 g/dL (11.7-16.6); Lymphocytes # 2.6 10^3/uL (0.8-4.8); Lymphocytes % 20.3 %; Mean Corpuscular HGB Conc 35.2 g/dL (30.0-36.0); Mean Corpuscular Hemoglobin 30.8 pg (28.0-34.0); Mean Corpuscular Volume 87.4 fl (80-94); Mean Platelet Volume 10.1 fL (7.4-10.4); Monocytes % 8.2 %; Neutrophils # 8.95 10^3/uL (1.8-7.7); Neutrophils % 70.7 %; Nucleated Red Blood Cells % 0 %; Platelet Count 304 10^3/cmm (130-400); Red Blood Count 5.46 10^6/uL (4.1-5.3); Red Cell Distribution Width 12.7 % (12.1-15.1); White Blood Count 12.6 10^3/uL (4.0-10.0)
[2022-08-08] MEDS: iohexol 350 mg/mL 500 mL Btl (per mL) IV (10:48)
[2022-08-08 10:57] LABS: Alanine Aminotransferase 13 U/L (0-41); Alkaline Phosphatase 88 U/L (40-130); Anion Gap 22.7 (5-19); Aspartate Amino Transferase 14 U/L (0-40); Blood Urea Nitrogen 53 mg/dL (6-20); Calcium 9.6 mg/dL (8.5-10.5); Carbon Dioxide 18 mmol/L (22-29); Chloride 90 mmol/L (98-107); Globulin 3.4 g/dL (1.3-4.6); Glomerular Filtration Rate 50.6 mL/min (90-130); Glucose 129 mg/dL (65-115); Lipase 28 U/L (13-60); Osmolality Calculated 280 mOsm/kg (285-295); Potassium 3.7 mmol/L (3.5-5.1); Sodium 127 mmol/L (136-145); Total Bilirubin 1.2 mg/dL (0.15-1.2); Total Protein 8.4 g/dL (6.6-8.7)
[2022-08-08 11:42] LABS: Add Urine Microscopic? YES; Bilirubin Urine Neg (Negative); Blood Urine 2+ (Negative); Glucose Urine UA Norm (Normal); Ketones Urine 1+ (Negative); Leukocyte Esterase Urine Negative (Negative); Nitrate Urine Negative (Negative); Protein Urine 1+ (Negative); Urine Appearance Clear (CLEAR); Urine Color Yellow (Yellow); Urobilinogen Urine Norm (Negative); pH Urine 5 (5-7)
[2022-08-08 11:44] LABS: Bacteria Urine TRACE /hpf; RBC Urine 0-4 /hpf (0-2)
[2022-08-08 11:45] LABS: Mucus Urine 1+ /hpf; WBC Urine RARE /hpf (0-5)
[2022-08-08 11:46] LABS: Add Urine Culture? No
[2022-08-08 13:18] VITALS: BP 105/78; PULSE 78; O2SAT 98
== END 2022-08-08 13:19 | disposition home or self-care (01) ==
PROVIDERS: Emergency Provider Physician Assistant; PCP Family Medicine
DX: R11.2 Nausea with vomiting, unspecified (principal); F12.90 Cannabis use, unspecified, uncomplicated; N17.9 Acute kidney failure, unspecified
CPT/HCPCS: 74177; 80053; 81001; 83690; 85025; 96361; 96374; 96375; 99285; J1630; J2060; J7030; Q9967